=== PATIENT | female | born 1985 | race Caucasian/White ===

== ENCOUNTER 2019-06-21 13:01 | Inpatient (IN) | payer SELFPAY ==
[2019-06-21] MEDS ORDERED: LORazepam INJ* 2 MG/ML 1 ML VIAL IV PUSH ONE (13:13)
[2019-06-21] MEDS ORDERED: Lorazepam PYXIS KEY PRN (13:13)
--- NOTE | 2019-06-21 14:08 | ED ---
Psychiatric Complaint - HPI Summary HPI Summary: This patient is a 34-year-old female presenting to the ED with symptoms of depression, crying and stating "my head just doesn't feel right." She states she recently left her fianc and now has nowhere to live. She states she has never had to go through this before, but does have a hx of anxiety. Patient is very tearful and crying on exam. Patient states she would like to get some help. She states she does have feelings of suicide, but states she would never go through with it. She would like resources and would like help she does not know how to cope with these feelings. She denies any HI. Denies any drug use, alcohol use. States she does get chest pain from time to time when she has severe anxiety. - History Of Current Complaint Chief Complaint: EDSuicidal Time Seen by Provider: 06/21/19 13:02 Hx Obtained From: Patient ?: No Onset/Duration: Sudden Onset Timing: Constant Severity Initially: Severe Severity Currently: Severe Character: Depressed, Anxious Aggravating Factor(s): Recent Stress Alleviating Factor(s): Nothing Associated Signs And Symptoms: Positive: Negative Has Suicidal: Reports: Thoughts - Risk Factor(s) Completed Suicide Risk Factors: Negative - Allergies/Home Medications Allergies/Adverse Reactions: Allergies Allergy/AdvReac Type Severity Reaction Status Date / Time No Known Allergies Allergy Verified 06/21/19 14:35 Home Medications: Home Medications Citalopram TAB* [CeleXA TAB*] 30 mg PO DAILY 06/21/19 [History Confirmed ] PMH/Surg Hx/FS Hx/Imm Hx Previously Healthy: Yes - Immunization History Hx Pertussis Vaccination: No Immunizations Up to Date: Yes Infectious Disease History: No Infectious Disease History: Denies: Traveled Outside the [place] in Last 30 Days - Social History Occupation: Unemployed Lives: Alone Alcohol Use: None Hx Substance Use: No Substance Use Type: Reports: None Hx Tobacco Use: No Review of Systems Negative: Fever, Chills, Fatigue, Skin Diaphoresis Negative: Palpitations, Chest Pain Negative: Shortness Of Breath, Cough Genitourinary: Negative Positive: no symptoms reported, see HPI Negative: Headache, Weakness Positive: Anxious, Depressed All Other Systems Reviewed And Are Negative: Yes Physical Exam Triage Information Reviewed: Yes Vital Signs On Initial Exam: Initial Vitals Temp Pulse Resp BP Pulse Ox 99.2 F 104 22 164/127 98 06/21/19 13:02 06/21/19 13:02 06/21/19 13:02 06/21/19 13:02 06/21/19 13:02 Vital Signs Reviewed: Yes Appearance: Positive: Well-Nourished Skin: Positive: Warm, Skin Color Reflects Adequate Perfusion Eyes: Positive: EOMI, ELENA, Conjunctiva Clear Respiratory/Lung Sounds: Positive: Breath Sounds Present Cardiovascular: Positive: RRR, Pulses are Symmetrical in both Upper and Lower Extremities Musculoskeletal: Positive: Normal, Strength/ROM Intact Neurological: Positive: Speech Normal Psychiatric: Positive: Anxious, Depressed Procedures - Sedation Patient Received Moderate/Deep Sedation with Procedure: No Diagnostics - Vital Signs Vital Signs Temp Pulse Resp BP Pulse Ox 06/21/19 13:02 99.2 F 104 22 164/127 98 - Laboratory Lab Statement: Any lab studies that have been ordered have been reviewed, and results considered in the medical decision making process. Course/Dx - Course Course Of Treatment: Patient is evaluated for depression, anxiety and recent stress. Patient is cleared for MHE. Following MHE, patient will be admitted for depression NOS. Voluntary. Dr. Khanna. - Differential Dx/Clinical Impression Differential Diagnosis/HQI/PQRI: Positive: Anxiety, Depression Provider Diagnosis: Depressed - Critical Care Time Critical Care Statement: Critical care time is provided exclusive of any time spent performing procedures. Discharge ED - Sign-Out/Discharge Documenting (check all that apply): Patient Departure - Discharge Plan Condition: Fair Disposition: ADMITTED TO [facility] Referrals: No Primary Care Phys,NOPCP [Primary Care Provider] - - Billing Disposition and Condition Condition: FAIR Disposition: Admitted to [facility]
[2019-06-21] MEDS ORDERED: LORazepam TAB(*) 1 MG PO ONE (16:15)
[2019-06-21 17:35] LABS: ABS Basophils 0.1 10^3/ul (0-0.2); ABS Monocytes 0.4 10^3/ul (0-0.8); ABS Neutrophils 6.1 10^3/ul (1.5-7.7); Eosinophil % 0.2 %; Hematocrit 42 % (35-47); Hemoglobin 14.1 g/dL (12.0-16.0); Mean Corpuscular HGB Conc 34 g/dL (31-36); Mean Corpuscular Hemoglobin 27 pg (27-31); Mean Corpuscular Volume 82 fL (80-97); Mean Platelet Volume 8.4 fL (7.4-10.4); Platelet Count 280 10^3/uL (150-450); Red Blood Count 5.12 10^6 /uL (3.70-4.87); Red Cell Distribution Width 15 % (10-15); White Blood Count 9.7 10^3/uL (3.5-10.8)
[2019-06-21 18:00] LABS: ALT 40 U/L (7-52); Albumin 3.8 g/dL (3.2-5.2); Albumin/Globulin Ratio 1.2 (1-3); Alkaline Phosphatase 63 U/L (34-104); Blood Urea Nitrogen 8 mg/dL (6-24); CO2 Carbon Dioxide 25 mmol/L (22-32); Chloride 105 mmol/L (101-111); EGFR Non-African American 82.6 (>60); Globulin 3.1 g/dL (2-4); Glucose 94 mg/dL (70-100); Sodium 137 mmol/L (135-145); Total Protein 6.9 g/dL (6.4-8.9)
[2019-06-21 18:01] LABS: Troponin I 0.01 ng/mL (<0.03)
[2019-06-21 18:02] LABS: Anion Gap 7 mmol/L (2-11)
[2019-06-21 18:05] LABS: HCG Pregnancy < 0.60 mIU/mL
[2019-06-21 18:25] LABS: Potassium Redraw 4.5 mmol/L (3.5-5.0)
[2019-06-21 18:27] LABS: Acetaminophen < 15 mcg/mL; Alcohol < 10 mg/dL (<10); Salicylate < 2.50 mg/dL (<30)
[2019-06-21 18:47] LABS: Urine Appearance Cloudy; Urine Bilirubin Negative (Negative); Urine Blood Negative (Negative); Urine Color Yellow; Urine Glucose Negative (Negative); Urine Ketones Negative (Negative); Urine Nitrite Negative (Negative); Urine Protein Negative (Negative); Urine Specific Gravity 1.023 (1.010-1.030); Urine Urobilinogen Negative (Negative)
[2019-06-21 18:48] LABS: Urine Bacteria Absent (Absent); Urine Red Blood Cell Absent (Absent); Urine Squamous Epithelial Cell Present (Absent); Urine White Blood Cell 2+(11-20/hpf) (Absent)
[2019-06-21 19:15] LABS: Urine Benzodiazepine Screen None Detected (None Detect); Urine Opiates Screen None Detected (None Detect)
[2019-06-21] MEDS ORDERED: Al Hydrox/Mg Hydrox/Simet LIQ* 30 ML UDC PO PRN (19:24)
[2019-06-21] MEDS ORDERED: Acetaminophen TAB* 325 MG PO PRN (19:24)
[2019-06-21] MEDS: hydrOXYzine HCL TAB* 50 MG PO PRN (22:22)
[2019-06-21] MEDS ORDERED: LORazepam TAB(*) 1 MG ONE (23:16)
[2019-06-21] MEDS: LORazepam TAB(*) 1 MG PO PRN (23:17)
[2019-06-22] MEDS: hydrOXYzine HCL TAB* 50 MG PO PRN ×2 (10:07→17:27)
[2019-06-22] MEDS: Vitamin THERAPEUTIC TAB PO SCH (10:07)
[2019-06-22] MEDS: LORazepam TAB(*) 1 MG PO PRN (10:53)
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
[2019-06-22] MEDS: Citalopram TAB* 10 MG PO SCH (20:41)
[2019-06-22] MEDS: LORazepam TAB(*) 0.5 MG PO PRN (20:41)
[2019-06-23] MEDS: LORazepam TAB(*) 0.5 MG PO PRN ×2 (06:46→13:02)
[2019-06-23 08:29] LABS: HDL Cholesterol 35.9 mg/dL
[2019-06-23] MEDS: Citalopram TAB* 10 MG PO SCH (10:16)
[2019-06-23] MEDS: Vitamin THERAPEUTIC TAB PO SCH (10:18)
[2019-06-23] MEDS ORDERED: LORazepam TAB(*) 1 MG PO PRN (17:45)
[2019-06-24] MEDS: Vitamin THERAPEUTIC TAB PO SCH (08:16)
[2019-06-24] MEDS: Citalopram TAB* 10 MG PO SCH (08:16)
[2019-06-24 09:42] VITALS: BP 127/84
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
== END 2019-06-24 12:25 | disposition home or self-care (01) | DRG 885 ==
LOC: ED 13:01 → BSU 21:30
PROVIDERS: ADMIT Psychiatry & Neurology Psychiatry; ATTEND Psychiatry & Neurology Psychiatry
DX: F33.2 Major depressive disorder, recurrent severe without psychotic features (principal); R45.851 Suicidal ideations; Z68.43 Body mass index [BMI] 50.0-59.9, adult; F43.10 Post-traumatic stress disorder, unspecified; E66.9 Obesity, unspecified; F17.210 Nicotine dependence, cigarettes, uncomplicated; Z79.899 Other long term (current) drug therapy
CPT/HCPCS: 36415; 80053; 80061; 80307; 80320; 80329; 81003; 81015; 83036; 84443; 84484; 84702; 85025; 87086; 93005; 99222; 99238; 99285; A9270-GY; G0480